=== PATIENT | female | born 1975 | race Asian ===

== ENCOUNTER 2019-12-18 19:39 | Emergency (ER) | payer SELFPAY ==
[~2019-12-18] VITALS: Ht 160 cm; Wt 81.6 kg
[2019-12-18 19:40] VITALS: BP_SYST 163
[2019-12-18 20:40] VITALS: BP_SYST 163
== END 2019-12-18 20:40 | disposition home or self-care (01) ==
LOC: SED 19:39
DX: S39.012A Strain of muscle, fascia and tendon of lower back, initial encounter (principal); I25.2 Old myocardial infarction; X58.XXXA Exposure to other specified factors, initial encounter; Y93.89 Activity, other specified; Y92.89 Other specified places as the place of occurrence of the external cause; Y99.8 Other external cause status
CPT/HCPCS: 99283

== ENCOUNTER 2019-12-23 22:41 | Emergency (ER) | payer SELFPAY ==
[~2019-12-23] VITALS: Ht 160 cm; Wt 81.6 kg
[2019-12-23 23:25] VITALS: BP_SYST 157
[2019-12-24 01:18] VITALS: BP_SYST 144
== END 2019-12-24 01:18 | disposition home or self-care (01) ==
LOC: SED 22:41
DX: M54.5 Low back pain (principal)
CPT/HCPCS: 99283